=== PATIENT | male | born 1990 | race Caucasian/White ===

== ENCOUNTER 2023-02-10 16:30 | Emergency (ER) | payer BC, SELFPAY ==
[2023-02-10 16:30] VITALS: BP 126/84; PULSE 103; RESP 20; TEMP 37.7; O2SAT 95
--- NOTE | 2023-02-10 17:05 | ED.MALEGU ---
HPI - Male Genitourinary General Chief complaint: Urogenital-Male Stated complaint: testicular pain Source: patient Mode of arrival: ambulatory Limitations: no limitations History of Present Illness HPI Narrative: 32-year-old male presents to the ER with a 1 day history of left testicular pain which is worse with Standing. The left testicle is swollen and tender on palpation. MD Complaint: testicle pain and testicle swelling Onset (ago): day(s) ( Started yesterday.) Duration: constant Location: left testicle Severity: severe Quality: aching Exacerbating factors: movement Associated symptoms: Reports denies other symptoms Related Data Sexually active: Yes Allergies Allergy/AdvReac Type Severity Reaction Status Date / Time sulfa Allergy Mild Unknown Uncoded 02/10/23 20:57 Review of Systems Review of Systems: All systems reviewed & are unremarkable except as noted in HPI and below Constitutional: Constitutional: Reports as per HPI and Reports no additional constitutional complaints Eyes: Eyes: Reports as per HPI and Reports no additional eye complaints ENT: Reports system reviewed and no additional complaints, except as documented and Reports as per HPI Cardiovascular: Cardiovascular: Reports as per HPI and Reports no additional cardiovascular complaints Respiratory: Respiratory: Reports as per HPI and Reports no additional respiratory complaints Gastrointestinal: Gastrointestinal: Reports as per HPI and Reports no additional gastrointestinal complaints Genitourinary: Genitourinary: Reports no additional male genitourinary complaints, Reports as per HPI and Reports testicular pain Comments: Left testicular pain and swelling Musculoskeletal: Musculoskeletal: Reports no additional musculoskeletal complaints and Reports as per HPI Integumentary/Breasts: Skin/Breast: Reports system reviewed and no additional complaints, except as docu and Reports as per HPI Neurologic: Reports system reviewed and no additional complaints, except as documented and Reports as per HPI Psychiatric: Psychiatric: Reports no additional psychiatric complaints and Reports as per HPI Endocrine: Endocrine: Reports no additional endocrine complaints and Reports as per HPI Hematologic/Lymphatic: Hematologic/Lymphatic: Reports no additional hematologic/lymphatic complaints and Reports as per HPI Allergic/Immunologic: Allergic/Immunologic: Reports no additional allergic/immunologic complaints and Reports as per HPI Exam Const: General: healthy appearing Nutritional Appearance: well nourished Limitations: no limitations HENMT: Head: normal to inspection Ears: TM's normal bilaterally Face/Nose/Sinus: Normal external nose present Face and sinus: normal facial exam Mouth: Yes Normal oral and palatal mucosa present Throat: posterior oropharynx normal Eyes: Conjunctivae: conjunctivae normal Pupils: Equal, round and reactive pupils present EOM: EOMs intact bilaterally Direct Ophthalmoscopy: no photophobia Neck: Neck: normal visual inspection, no lymphadenopathy and no meningeal signs Chest: Chest palpation & inspection: normal inspection of the chest Resp: Effort & Inspection: normal respiratory effort Auscultation: clear to auscultation bilaterally Cardio: Rate: regular rate Rhythm: regular rhythm GI: GI Palp: Yes Soft to palpation Auscultation: normal bowel sounds Other: tenderness/rigidity / rebound. : Testes: epididymal tenderness and testicular swelling Other: Left Testicular/ epididymis swelling/tenderness. pain increases on elevation of the testicle. Left cremasteric reflex is absent. Back/Spine/Pelvis: Back: no CVA tenderness Skin: General skin exam: normal color Rashes: no rashes Wounds: no wounds Neuro: General: patient oriented x3, moves all extremities, no meningeal signs and no focal motor deficits Cranial nerves: Yes CN's II-XII intact bilaterally Speech: normal speech Gait exam (N
[2023-02-10 17:38] LABS: Appearance Urine Clear (Clear); Bilirubin Urine Negative (Negative); Blood Urine Negative (Negative); Color Urine Light Yellow (Yellow); Glucose Urine UA Negative (Negative); Ketones Urine Negative (Negative); Leukocyte Esterase Ur Negative LEU/UL (Negative); Nitrate Urine Negative (Negative); Protein Urine Negative (Negative); Specific Grav Ur <= 1.005 (1.010-1.020); Urobilinogen Urine 0.2 mg/dL (0.2-1.0)
[2023-02-10 17:42] LABS: Add Urine Microscopic? NO
--- NOTE | 2023-02-10 18:27 | PC.NURSE ---
1825 pt departed with [facility] for transport to [facility] for ultrasound. pt ambulated to [facility] cot. alert and stable. awaiting return to [facility].
--- NOTE | 2023-02-10 20:32 | PC.NURSE ---
Pt has returned from [facility] at this time. Awaiting US results.
[2023-02-10 20:36] VITALS: BP 113/82; PULSE 95; RESP 18; O2SAT 98
[2023-02-10 21:08] VITALS: BP 113/94; PULSE 84; RESP 18; TEMP 37; O2SAT 98
[2023-02-12 08:05] LABS: Chlamydia trachomatis NOT DETECTED (NOT DETECTE); Neisseria gonorrhoeae PCR NOT DETECTED (NOT DETECTE)
== END 2023-02-10 21:10 | disposition home or self-care (01) ==
PROVIDERS: Emergency Provider Internal Medicine Critical Care Medicine; PCP Family Medicine
DX: N45.3 Epididymo-orchitis (principal)
CPT/HCPCS: 81003; 87491; 87591; 99283

== ENCOUNTER → 2023-02-10 19:09 | Outpatient (REF) | payer OTHER, SELFPAY ==
--- NOTE | ~2023-02-10 | US_ITS ---
CORRECTED REPORT ordering doctor corrected [facility] [place] This report was recreated on 02/11/23. Original report was EXAMINATION: US scrotum doppler DATE: 02/10/2023 20:07 INDICATION: Left testicular pain and firmness since yesterday. Low-grade fever. TECHNIQUE: Grayscale and Doppler ultrasound images of the testes were obtained. COMPARISON: None. FINDINGS: The right testis measures 5.6 x 2.4 x 2.9 cm. The left testis measures 6.0 x 3.3 x 3.5 cm. No testicular mass. There is increased flow in the left testicle. 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 The right epididymis is normal with normal vascular flow. The left epididymis is normal with normal vascular flow. Trace bilateral hydroceles. IMPRESSION: Hyperemic left testicle may be secondary to infection, trauma or revascularization from resolved/intermittent torsion. No current sonographic evidence of torsion. Reviewed, dictated and finalized at location [facility]. MTD[facility] IMPRESSION: Hyperemic left testicle may be secondary to infection, trauma or revascularizat ion from resolved/intermittent torsion. No current sonographic evidence of tors ion.
== END ==
LOC: ANHIMG 19:09
PROVIDERS: PCP Family Medicine
DX: N50.812 Left testicular pain (principal)
CPT/HCPCS: 76870; 93976